=== PATIENT | male | born 1995 | race Caucasian/White ===

== ENCOUNTER 2017-05-14 15:17 | Emergency (ER) | payer OTHER ==
[~2017-05-14] VITALS: Ht 182.9 cm; Wt 61.0 kg
[2017-05-14 15:21] VITALS: BP 121/77
[2017-05-14] MEDS ORDERED: DIPH,PERTUSS(ACELL),TET VAC/PF 0.5 ML IM-VACC ONE ×2 (16:00→16:04)
[2017-05-14] MEDS ORDERED: LIDOCAINE 1%, 20ML SQ ONE (16:00)
[2017-05-14] MEDS ORDERED: LIDOCAINE 1%, 20ML ONE (16:04)
== END 2017-05-14 16:51 | disposition home or self-care (01) ==
LOC: ED 16:45
DX: S61.212A Laceration without foreign body of right middle finger without damage to nail, initial encounter (principal); W26.8XXA Contact with other sharp object(s), not elsewhere classified, initial encounter; Y99.8 Other external cause status; Y92.89 Other specified places as the place of occurrence of the external cause
CPT/HCPCS: 12001; 90471; 90715